=== PATIENT | male | born 1940 | race Caucasian/White ===

== ENCOUNTER 2019-04-27 19:24 | Emergency (ER) | payer OTHER, MEDICARE ==
--- NOTE | 2019-04-29 04:04 | ER ---
DATE SEEN: 04/27/2019 REASON FOR VISIT: Bruising. HISTORY OF PRESENT ILLNESS: This is a 78-year-old male who complains of bruising around both eyes that was noted today incidentally. He underwent Mohs procedure on and was doing well until today when he noticed the bruising which is painless. No visual disturbance. He does take Eliquis for atrial fibrillation. REVIEW OF SYSTEMS: No headaches, and no other bleeding areas. CURRENT MEDICATIONS: Include: 1. Aspirin. 2. Eliquis. PHYSICAL EXAMINATION: GENERAL: He is a well-nourished male. He has a normal blood pressure and pulse. HEENT: Head is atraumatic. There are stitches on the glabella from a surgical wound that is clean. He has periorbital ecchymosis, but extraocular movements are intact. Pupils are equal and reactive to light. IMPRESSION: Ecchymosis periorbital. PLAN: I think this is a bruising from the surgery and the combination of aspirin and Eliquis. I reassured him and recommended that he continue taking the same medications and return with any worsening symptoms. /[id number] LUKE/JEANNE
== END 2019-04-27 20:52 | disposition home or self-care (01) ==
LOC: FB.ED 19:24
DX: S00.83XA Contusion of other part of head, initial encounter (principal); X58.XXXA Exposure to other specified factors, initial encounter
CPT/HCPCS: 99283